=== PATIENT | male | born 1995 | race Caucasian/White ===

== ENCOUNTER 2017-06-02 00:44 | Emergency (ER) | payer BC ==
[~2017-06-02] VITALS: Ht 180.3 cm; Wt 83.9 kg
[~2017-06-02 00:44] MED LIST: IBU-6600 MG PO; PERCOCET 325 MG1 TA2 PO; TOBREX OPHTH S2.5 ML OU
[2017-06-02 00:51] VITALS: BP 140/79
[2017-06-02] MEDS ORDERED: OMNICEF300 MG PO (01:00)
== END 2017-06-02 01:06 | disposition home or self-care (01) ==
LOC: ED 00:44
DX: H65.93 Unspecified nonsuppurative otitis media, bilateral (principal); Z90.49 Acquired absence of other specified parts of digestive tract; Z98.890 Other specified postprocedural states

== ENCOUNTER 2017-11-07 01:17 | Emergency (ER) | payer BC ==
[~2017-11-07] VITALS: Ht 180.3 cm; Wt 86.2 kg
[~2017-11-07 01:17] MED LIST changes: +OMNICEF300 MG PO
[2017-11-07 01:21] VITALS: BP 138/77
[2017-11-07 01:45] LABS: BILIRUBIN NEGATIVE (NEGATIVE); BLOOD NEGATIVE (NEGATIVE); CLARITY CLEAR (CLEAR); COLOR YELLOW (YELLOW); GLUCOSE NEGATIVE (NEGATIVE); KETONE NEGATIVE (NEGATIVE); LEUKO ESTERASE NEGATIVE (NEGATIVE); NITRITE NEGATIVE (NEGATIVE); SPECIFIC GRAVITY >= 1.030 (1.005-1.030)
[2017-11-07] MEDS ORDERED: LEVOFLOXACIN500 MG PO (02:04)
== END 2017-11-07 02:04 | disposition home or self-care (01) ==
LOC: ED 01:17
PROVIDERS: Emergency Medicine
DX: R30.0 Dysuria (principal); R19.7 Diarrhea, unspecified; Z90.49 Acquired absence of other specified parts of digestive tract